=== PATIENT | female | born 2000 | race Caucasian/White ===

== ENCOUNTER 2024-08-08 09:54 | Outpatient (CLI) | payer OTHER | END 2024-08-08 09:55 | disposition home or self-care (01) | LOC: CSHULT 09:54 | PROVIDERS: ATTEND Family Medicine | DX: Z34.02 Encounter for supervision of normal first pregnancy, second trimester (principal); Z3A.19 19 weeks gestation of pregnancy | CPT/HCPCS: 76805 ==